=== PATIENT | female | born 1960 | race Caucasian/White ===

== ENCOUNTER 2019-12-15 11:56 | Observation (INO) ==
[2019-12-15] MEDS ORDERED: ACETAMINOPHEN 1,000 MG/100 ML VIAL IV STA (12:39)
[2019-12-15] MEDS ORDERED: SODIUM CHLORIDE 0.9% 1000ML 1,000 ML IV ONE (12:39)
[2019-12-15] MEDS ORDERED: KETOROLAC TROMETHAMINE 15 MG/ML VIAL IV STA (12:39)
[2019-12-15 13:22] LABS: INR 1.1 (0.9-1.1); Partial Thromboplastin Ratio 0.9; Partial Thromboplastin Time 25.3 Seconds (21.0-31.0); Prothrombin Time 11.1 Seconds (9.0-12.0)
[2019-12-15 13:30] LABS: Bilirubin Direct < 0.1 mg/dl (0-0.2); Blood Urea Nitrogen 12 mg/dl (7-18); Calcium 8.7 mg/dl (8.5-10.1); Carbon Dioxide 23 mmol/L (21-32); Chloride 107 mmol/L (98-107); Creatinine Clr Calc Pharmacy 99.5 ml/min; Est GFR (African American) 112.4; Glucose 99 mg/dl (70-99); Hematocrit (blood only) 26.9 % (37-47); Lipase 124 U/L (73-393); Magnesium 2.1 mg/dl (1.8-2.4); Mean Corpuscular Hemoglobin 30.6 pg (25-34); Mean Corpuscular Hgb Conc 33.5 g/dL (32-36); Mean Corpuscular Volume 91.5 fL (80-100); Mean Platelet Volume 8.8 fL (7.4-10.4); Platelet Count 92 K/uL (130-400); Potassium 4.1 mmol/L (3.5-5.1); RDW Coefficient of Variation 16.9 % (11.5-14.5); RDW Standard Deviation 55.6 fL (36.4-46.3); Red Blood Count 2.94 M/uL (4.2-5.4); Sodium 137 mmol/L (136-145); White Blood Count 1.03 K/uL (4.8-10.8)
[2019-12-15 13:32] LABS: Anisocytosis Present; Platelet Estimate Decreased (Normal); Tear Drop Cells 1+
[2019-12-15 13:34] LABS: ALC (manual) 0.65 K/uL (1.2-3.4); Basophils # (manual) 0.07 K/uL (0-0.2); Basophils % (manual) 7.1 %; Lymphocytes # (manual) 0.65 K/uL (1.2-3.4); Lymphocytes % (manual) 63.4 %; Neutrophils % (manual) 29.5 %
[2019-12-15 13:39] LABS: Alanine Aminotransferase 43 U/L (12-78); Albumin Globulin Ratio 0.8 (0.9-2); Alkaline Phosphatase 80 U/L (45-117); Aspartate Aminotransferase 23 U/L (15-37); Bilirubin,Total 0.5 mg/dl (0.2-1); Globulin 3.7 gm/dl (2.5-4.0); NT Pro B Type Natriuretic Pept 23 pg/ml (0-900); Phosphorus 3.3 mg/dl (2.5-4.9); Total Protein 6.7 gm/dl (6.4-8.2); Troponin I < 0.015 ng/ml (0-0.045)
--- NOTE | 2019-12-15 13:41 | XRay Report ---
XR chest 1V portable HISTORY: 59 years-old Female Chest Pain . Acute atypical chest pain COMPARISON: Chest CT 10/07/2019 TECHNIQUE: Portable AP view of the chest FINDINGS: Cardiomediastinal and hilar silhouettes are within normal limits. Right IJ catheter distal tip termin ates in the expected location of the mid SVC. No pneumothorax, pleural effusion, airspace consolidati on or overt pulmonary edema. Bones of the chest appear grossly intact. IMPRESSION: No acute process. ACT 112: Negative or not required by law. The above report was generated using voice recognition software. It may contain grammatical, syntax o r spelling errors. Electronically signed by: José Manuel Mae M.D. 12/15/2019 1:40 PM
--- NOTE | 2019-12-15 14:07 | Emergency Department Note ---
Impression & Plan Pulmonary embolism, Thrombocytopenia, Neutropenia, Breast cancer in female ED Provider Note NAME: ROD RAYMOND AGE: 59 SEX: F ARRIVES VIA: Walk-In INFORMANT: Patient, ED PROVIDER(S): Jae Jeffers MD CHIEF COMPLAINT: Chest pain PLAN: Disposition: Admit MEDICAL DECISION MAKING: The patient is a pleasant 67-year-old woman with a past medical history of breast cancer diagnosed in October currently undergoing chemotherapy who presents emergency department with acute onset right-sided chest pain with associated shortness of breath that began yesterday. Patient denies fevers, chills, cough, congestion, nausea, vomiting, diarrhea, urinary symptoms. On arrival the patient is in no acute distress, afebrile with heart in the 120s and vital signs otherwise stable. On exam the patient appears clinically dry. EKG without overt acute ischemia. Chest x-ray negative for acute process. WBC 1.03 with ANC of 0.3 without recent values for comparison in our EMR though the patient reports being neutropenic recently related to her chemotherapy. H/H 9/26.9. Platelets 92K without recent values for comparison. Chemistry without acidosis. Electrolytes and LFTs unremarkable. Troponin negative/undetectable. BNP within normal limits. Lipase within normal limits. CTA of the chest demonstrates several acute appearing small segmental and subsegmental pulmonary emboli within the right middle lobe and bilateral lower lobes. Findings were reviewed with the patient and she is agreeable with plan for admission. Will initiate treatment with heparin given the patient's thrombocytopenia. Case was discussed with Oralia Brown [facility] PAC, with Dr. Galindo, [facility] hospitalist who will evaluate the patient for admission. Triage Nursing notes reviewed and agree them. Prior medical records reviewed Vital Signs: reviewed and remarkable for tachycardia Differential diagnosis: Cardiac ischemia, aortic dissection, pulmonary embolism, pneumothorax, pn eumonia, pericarditis, myocarditis, esophageal rupture, GERD, cholecystitis, pancreatitis, musculoskeletal, as well as other pathologies. ER treatment provided: See below. Diagnostics interpreted by me: ECG: Sinus tachycardia, 114 bpm, normal axis, no ectopy, no overt ST elevation or depression, QTC 427, QRS 80. Cardiac Monitoring: An order for continuous cardiac monitoring was placed and demonstrated sinus tachycardia, 114 bpm, no ectopy. Laboratory studies: See below Imaging studies: XR chest 1V portable HISTORY: 59 years-old Female Chest Pain . Acute atypical chest pain COMPARISON: Chest CT 10/07/2019 TECHNIQUE: Portable AP view of the chest FINDINGS: Cardiomediastinal and hilar silhouettes are within normal limits. Right IJ cat heter distal tip terminates in the expected location of the mid SVC. No pneumothorax, pleural effusion, airspace consolidation or overt pulmonary edema. Bones of the chest appear grossly intact. IMPRESSION: No acute process. -- CT ANGIOGRAPHY OF THE CHEST, PULMONARY EMBOLUS PROTOCOL CLINICAL HISTORY: Chest pain. COMPARISON STUDY: Chest CT October 07, 2019. Chest radiograph December 15, 2019. TECHNIQUE: Following IV administration of 118 mL of Optiray-320, helical axial images of the chest were obtained utilizing the pulmonary embolus protocol. Maximal intensity projections and sagittal and coronal reformats were viewed on an independent 3D workstation. IV contrast was administered without complication. Automated exposure control was utilized for the study. A dose lowering technique was utilized adhering to the principles of ALARA. CT DOSE: 345.80 mGy.cm FINDINGS: A right internal jugular [id number] is in place. There are several acute-appearing small segmental and subsegmental pulmonary emboli within the right middle lobe and bilateral lower lobes. There is no CT evidence for right heart strain. No pulmonary infarct is noted. No enlarged thoracic lymph nodes are present. There is no thoracic aortic dissection. Size the heart is normal. There is no pericardial effusion. No pulmonary nodules are present. Bony thorax is unremarkable. Upper abdomen is unremarkable. There is a small hiatal hernia. IMPRESSION: 1. Several acute-appearing small segmental and subsegmental pulmonary emboli within the right middle lobe and bilateral lower lobes. 2. No pulmonary infarct. No CT evidence for right heart strain. Consultation(s): Case was discussed with Oralia Brown, [facility] PAC, with Dr. Galindo, [facility] hospitalist who will evaluate the patient for admission. HPI: The patient is a pleasant 67-year-old woman with a past medical history of breast cancer diagnosed in October currently undergoing chemotherapy who presents emergency department with acute onset right-sided chest pain with associated shortness of breath that began yesterday. Patient denies fevers, chills, cough, congestion, nausea, vomiting, diarrhea, urinary symptoms. ROS: See above HPI for pertinent positives & negatives. A total of 10 systems reviewed and were otherwise negative. PAST MEDICAL HISTORY:See Below PAST SURGICAL HISTORY:See Below FAMILY HISTORY:See Below SOCIAL HISTORY:See Below HOME MEDICATIONS:See Below ALLERGIES:See Below VITALS:See Below PHYSICAL EXAMINATION: GENERAL: Awake, alert, fatigued-appearing, in no distress HENT: Normocephalic, atraumatic. Oropharynx with dry mucous membranes and otherwise unremarkable. EYES: Normal conjunctiva. Sclera non-icteric. NECK: Supple. No nuchal rigidity. FROM. No JVD. RESPIRATORY: Clear to auscultation. CARDIAC: Tachycardic rate, normal rhythm. Extremities warm and well perfused. Pulses equal. ABDOMEN: Soft, non-distended. No tenderness to palpation. No rebound or guarding. No masses. RECTAL: Deferred. MUSCULOSKELETAL: Chest examination reveals no tenderness. The back is symmetrical on inspection without obvious abnormality. There is no CVA tenderness to palpation. No joint edema. LOWER EXTREMITIES: Calves are equal size bilaterally and non-tender. No edema. No discoloration. NEURO: Normal sensorium. No sensory or motor deficits noted. SKIN: No rash or jaundice noted. ED COURSE: Critical Care: I have personally spent greater than 45 minutes of critical care time in the direct management of this patient. This includes bedside care, interpretation of diagnostic studies, and testing, discussion with consultants, patient, and family members, and other required patient management activities. This 45 minutes is in excess of all separately billable procedures. Jae Jeffers MD Past Med/Surg History Medical History Breast cancer History of migraine Hyperlipidemia Surgical History S/P breast biopsy S/P tonsillectomy Family History Other Heart disease Social History Smoking Status: Never smoker Hx Alcohol Use: No Hx Substance Use: No Preferred Language: Stateless Communication Ability: Effective Domestic Laundry Worker Required: No Beliefs That Will Affect Care: None Current Living Situation: Spouse Other Information That Helps Us Care for You: No Feels Safe at Home: Yes Safety Concerns: Feels Safe At This Time Allergies Allergies Allergy/AdvReac Type Severity Reaction Status Date / Time ciprofloxacin [From Cipro] Allergy vomiting, Unverified 12/15/19 13:26 sweating, tongue swelling codeine Allergy fainting, Unverified 12/15/19 13:26 dizziness amoxicillin AdvReac Rash Unverified 12/15/19 13:26 Home Meds Home Medications Medication Instructions Recorded Confirmed prochlorperazine maleate 10 mg PO UD PRN 12/15/19 12/15/19 sumatriptan succinate 50 mg PO UD PRN 12/15/19 12/15/19 Results & Data (ED) Vital Signs Vital Signs - 24 hr 12/15/19 12:07 12/15/19 12:20 12/15/19 12:31 Temperature 36.9 C Temperature Source Oral Pulse Rate 126 H 107 H 110 H Pulse Rate from SpO2 Sensor Respiratory Rate 16 16 21 Respiratory Depth Normal Blood Pressure 105/72 Blood Pressure Mean 83 Pulse Oximetry 98 Sepsis Recent Fever Within 48 Hours No Sepsis New/Unexplained Change in Mental Status No Sepsis Action Taken by Nursing No Action Required 12/15/19 12:49 12/15/19 12:59 12/15/19 13:00 Temperature Temperature Source Pulse Rate 105 H 103 H Pulse Rate from SpO2 Sensor 105 H 103 H Respiratory Rate 17 21 Respiratory Depth Blood Pressure 123/74 121/73 Blood Pressure Mean 94 80 Pulse Oximetry 97 97 97 Sepsis Recent Fever Within 48 Hours Sepsis New/Unexplained Change in Mental Status Sepsis Action Taken by Nursing 12/15/19 13:30 12/15/19 14:00 12/15/19 14:37 Temperature Temperature Source Pulse Rate 85 92 H 86 Pulse Rate from SpO2 Sensor 92 H 92 H Respiratory Rate 21 16 Respiratory Depth Blood Pressure 127/70 92/72 L Blood Pressure Mean 98 77 Pulse Oximetry 99 97 Sepsis Recent Fever Within 48 Hours Sepsis New/Unexplained Change in Mental Status Sepsis Action Taken by Nursing 12/15/19 15:00 Temperature Temperature Source Pulse Rate 83 Pulse Rate from SpO2 Sensor 83 Respiratory Rate 19 Respiratory Depth Blood Pressure Blood Pressure Mean Pulse Oximetry 98 Sepsis Recent Fever Within 48 Hours Sepsis New/Unexplained Change in Mental Status Sepsis Action Taken by Nursing Laboratory Data Attestation: I reviewed the patient's lab results. Result diagrams: 12/15/19 12:50 12/15/19 12:50 Lab Results 12/15/19 12/15/19 12/15/19 Range/Units 12:50 12:50 12:50 WBC 1.03 L (4.8-10.8) K/uL RBC 2.94 L (4.2-5.4) M/uL Hgb 9.0 L (12.0-16.0) g/dL Hct 26.9 L (37-47) % MCV 91.5 (80-100) fL MCH 30.6 (25-34) pg MCHC 33.5 (32-36) g/dL RDW Std Deviation 55.6 H (36.4-46.3) fL RDW Coeff of Anish 16.9 H (11.5-14.5) % Plt Count 92 L (130-400) K/uL MPV 8.8 (7.4-10.4) fL Neutrophils % (Manual) 29.5 % Lymphocytes % (Manual) 63.4 % Basophils % (Manual) 7.1 % Neutrophils # (Manual) 0.30 L (1.4-6.5) K/uL Total Absolute Neuts 0.30 L* (1.4-6.5) K/uL Lymphocytes # (Manual) 0.65 L (1.2-3.4) K/uL Total Abs Lymphocytes 0.65 L (1.2-3.4) K/uL Basophils # (Manual) 0.07 (0-0.2) K/uL Platelet Estimate Decreased L (Normal) Anisocytosis Present Tear Drop Cells 1+ PT 11.1 (9.0-12.0) Seconds INR 1.1 (0.9-1.1) APTT 25.3 (21.0-31.0) Seconds PTT Ratio 0.9 Sodium 137 (136-145) mmol/L Potassium 4.1 (3.5-5.1) mmol/L Chloride 107 (98-107) mmol/L Carbon Dioxide 23 (21-32) mmol/L Anion Gap 7.0 (3-11) BUN 12 (7-18) mg/dl Creatinine 0.64 (0.6-1.2) mg/dl Est Cr Clr Drug Dosing 99.5 ml/min Est GFR ( Amer) 112.4 Est GFR (Non-Af Amer) 97.0 BUN/Creatinine Ratio 19.0 (10-20) Glucose 99 (70-99) mg/dl Calcium 8.7 (8.5-10.1) mg/dl Phosphorus 3.3 (2.5-4.9) mg/dl Magnesium 2.1 (1.8-2.4) mg/dl Total Bilirubin 0.5 (0.2-1) mg/dl Direct Bilirubin < 0.1 (0-0.2) mg/dl AST 23 (15-37) U/L ALT 43 (12-78) U/L Alkaline Phosphatase 80 (45-117) U/L Troponin I < 0.015 (0-0.045) ng/ml NT-Pro-B Natriuret Pep 23 (0-900) pg/ml Total Protein 6.7 (6.4-8.2) gm/dl Albumin 3.0 L (3.4-5.0) gm/dl Globulin 3.7 (2.5-4.0) gm/dl Albumin/Globulin Ratio 0.8 L (0.9-2) Lipase 124 (73-393) U/L TSH 1.160 (0.300-4.500) uIu/ml Administered Medications Heparin Sodium/Dextrose (Heparin Sodium/Dextrose) 25,000 units in 500 mls @ 24 mls/hr IV .[id number] ANDRES; Protocol Stop: 01/14/20 15:44 Last Titration: 12/15/19 20:08 Dose: 1,200 units/hr, 24 mls/hr Documented by: [id number] Cosigned by: [id number] Titration: 12/15/19 19:02 Dose: 1,200 units/hr, 24 mls/hr Documented by: [id number] Cosigned by: [id number] Titration: 12/15/19 16:39 Dose: 1,200 units/hr, 24 mls/hr Documented by: [id number] Cosigned by: [id number] Admin: 12/15/19 15:53 Dose: 1,200 units/hr, 24 mls/hr Documented by: [id number] Cosigned by: [id number] Discontinued Medications Heparin Sodium/Dextrose (Heparin Iv Standard *No* Bolus) 1 ea IV ONE ONE; Protocol Stop: 12/15/19 15:32 Last Admin: 12/15/19 15:56 Dose: Not Given Documented by: [id number] Sodium Chloride (Nss 1000ml) 1,000 mls @ 999 mls/hr IV .Q1H1M ONE Stop: 12/15/19 13:39 Last Infusion: 12/15/19 15:37 Dose: 0 mls/hr Documented by: [id number] Admin: 12/15/19 12:55 Dose: 999 mls/hr Documented by: [id number] Acetaminophen (Ofirmev) 1,000 mg in 100 mls @ 400 mls/hr IV NOW STA Stop: 12/15/19 12:53 Last Infusion: 12/15/19 13:38 Dose: 0 mls/hr Documented by: [id number] Admin: 12/15/19 12:55 Dose: 400 mls/hr Documented by: [id number] Sodium Chloride (Nss) 500 mls @ 999 mls/hr IV .Q31M ONE Stop: 12/15/19 15:40 Last Infusion: 12/15/19 16:20 Dose: 0 mls/hr Documented by: [id number] Admin: 12/15/19 15:53 Dose: 999 mls/hr Documented by: [id number] Ioversol (Optiray 320 125ml) 118 ml IV ONCE ONE Stop: 12/15/19 14:27 Last Admin: 12/15/19 14:27 Dose: 118 ml Documented by: [id number] Ketorolac Tromethamine (Ketorolac Tromethamine 15 Mg/Ml Vial) 15 mg IV NOW STA Stop: 12/15/19 12:40 Last Admin: 12/15/19 12:55 Dose: 15 mg Documented by: [id number] Blood Pressure Blood Pressure Findings: Low blood pressure Blood Pressure Disposition: further management by hospitalist Discharge Plan Visit Data Chief Complaint: Chest Pain Stated Complaint: CHEST PAIN PAIN DOWN BOTH ARMS, NO CHEMO ED Provider: Jae Jeffers Discharge Problem: Pulmonary embolism, Thrombocytopenia, Neutropenia, Breast cancer in female Patient Disposition: Admitted As Inpatient Discharge Instructions Interventions: ED Discharge Assessment Last Done: 12/15/19 16:19 Discharge Problem: Pulmonary embolism Qualifiers: Pulmonary embolism type: unspecified Chronicity: acute Acute cor pulmonale presence: without acute cor pulmonale Qualified Code(s): I26.99 - Other pulmonary embolism without acute cor pulmonale
[2019-12-15] MEDS ORDERED: OPTIRAY 320 125ml IV ONE (14:26)
--- NOTE | 2019-12-15 14:46 | CT Scan Report ---
CT ANGIOGRAPHY OF THE CHEST, PULMONARY EMBOLUS PROTOCOL CLINICAL HISTORY: Chest pain. COMPARISON STUDY: Chest CT October 07, 2019. Chest radiograph December 15, 2019. TECHNIQUE: Following IV administration of 118 mL of Optiray-320, helical axial images of the chest we re obtained utilizing the pulmonary embolus protocol. Maximal intensity projections and sagittal and coronal reformats were viewed on an independent 3D workstation. IV contrast was administered withou t complication. Automated exposure control was utilized for the study. A dose lowering technique wa s utilized adhering to the principles of ALARA. CT DOSE: 345.80 mGy.cm FINDINGS: A right internal jugular [id number] is in place. There are several acute-appearing smal l segmental and subsegmental pulmonary emboli within the right middle lobe and bilateral lower lobes. There is no CT evidence for right heart strain. No pulmonary infarct is noted. No enlarged thoracic lymph nodes are present. There is no thoracic aortic dissection. Size the heart is normal. There is n o pericardial effusion. No pulmonary nodules are present. Bony thorax is unremarkable. Upper abdomen is unremarkable. There is a small hiatal hernia. IMPRESSION: 1. Several acute-appearing small segmental and subsegmental pulmonary emboli within the right middle lobe and bilateral lower lobes. 2. No pulmonary infarct. No CT evidence for right heart strain. ACT 112: Negative or not required by law. Electronically signed by: Brayan Padilla M.D. 12/15/2019 2:45 PM
[2019-12-15] MEDS ORDERED: SODIUM CHLORIDE 0.9% 500 ML IV ONE (15:10)
[2019-12-15] MEDS ORDERED: Heparin IV Standard *NO* Bolus IV ONE (15:31)
--- NOTE | 2019-12-15 15:45 | History & Physical Report ---
Date of Service December 15, 2019 Assessment & Plan (1) Pulmonary embolism: This is a 59yo F with PMH of invasive cancer of left breast (estrogen/progesterone receptor positive) on chemo, chemo induced neutropenia, migraine headaches and other medical problems as below who presents with dyspnea on exertion and chest tightness x 3 days and was found to have several acute appearing pulmonary emboli. -CTA chest with several acute-appearing small segmental and subsegmental pulmonary emboli within the right middle lobe and bilateral lower lobes. No pulmonary infarct. No CT evidence for right heart strain. -Started on IV heparin in ED for anticoagualation -Need to discuss preferred anticoagulation with heme onc in setting of thrombocyopenia with plts of 94 -Trending troponin, repeat EKG in AM, routine echo due to further evaluate for heart strain (2) Breast cancer in female: Follows with Dr. Petesr in [place]. Recently completed 4th cycle of AC chemotherapy with plans for Taxol 12/23/19 (3) Neutropenia: Absolute neutrophil count of 0.30. Neutropenic precautions -Afebrile, no evidence of infection but plan to add cefepime if concern arises (4) History of migraine: Home sumatriptan PRN DVT Ppx: IV heparin Code status: FULL PCP: [facility] Dispo: Admitted to PCU. Plan to return home once medically stable. Patient seen in collaboration with Dr. Galindo. Please see addendum. History of Present Illness Chief Complaint: CP Primary Care Provider: Joe Stone, This is a 59yo F with PMH of invasive cancer of left breast (estrogen/progesterone receptor positive) on chemo, chemo induced neutropenia, migraine headaches and other medical problems as below who presents with dyspnea on exertion and chest tightness x 3 days. Was recently admitted at [facility] [place]22 to 11/27 for neutropenic fever. Was treated with cefepime for 3 days but blood and urine cultures were negative and was discharged home. Then completed 4th cycle of AC chemotherapy on 12/09/19 and developed SOB, chest tightness and heaviness in arms that has not subsided, so she was directed to ED for further evaluation. Also endorses fever of 100-101 2 days ago that has not recurred. Is scheduled to begin Taxol regimen on 12/23/19. Denies chills, headache, lightheadedness, visual changes, cough, palpitations, abdominal pain, nausea, vomiting, dysuria, constipation or diarrhea. Allergies Allergy/AdvReac Type Severity Reaction Status Date / Time ciprofloxacin [From Cipro] Allergy vomiting, Unverified 12/15/19 13:26 sweating, tongue swelling codeine Allergy fainting, Unverified 12/15/19 13:26 dizziness amoxicillin AdvReac Rash Unverified 12/15/19 13:26 Home Medications Home Medications Medication Instructions Recorded Confirmed Type prochlorperazine maleate 10 mg PO UD PRN 12/15/19 12/15/19 History sumatriptan succinate 50 mg PO UD PRN 12/15/19 12/15/19 History Past Med/Surg History Medical History Breast cancer History of migraine Hyperlipidemia Surgical History S/P breast biopsy S/P tonsillectomy Family History Other Heart disease Social History Smoking Status: Never smoker Hx Alcohol Use: No Hx Substance Use: No Preferred Language: Gibraltarian Communication Ability: Effective Lip Cutter Required: No Beliefs That Will Affect Care: None Current Living Situation: Spouse Other Information That Helps Us Care for You: No Feels Safe at Home: Yes Safety Concerns: Feels Safe At This Time Review of Systems Review of Systems: At least ten systems reviewed and negative except as noted in the HPI. Physical Exam Physical Exam: General Appearance: WD/WN, vitals as above, sitting up in bed, pleasant, conversing easily Head: normocephalic, atraumatic Eyes: normal inspection, PERRL, conjunctivae normal, anicteric sclerae ENT: external ear and nose normal, oropharynx normal Neck: normal visual inspection, trachea midline, no thyromegaly Respiratory: normal respiratory effort, lungs clear to auscultation, no wheeze, rales, rhonchi. No accessory muscle use Cardiovascular: regular rate, rhythm, no murmur, normal peripheral pulses, no BLE edema Chest: normal inspection of chest. Palpation of chest wall non-tender Abdomen/GI: normal bowel sounds, soft, nontender, no hepatosplenomegaly Extremities/Musculoskeletal: no cyanosis or clubbing, extremities motor strength 5/5 Neurologic: PERRL, EOMI, accommodation nl, no face palsy, no dysarthria, CN's II-XI intact bilaterally and moves all extremities Psychiatric: A+Ox3, euthymic affect Skin: no rashes, normal color, warm/dry Results & Data Results & Data ([facility]) Vital Signs (Past 12 Hours) Vital Signs Temp Pulse Resp BP Pulse Ox 12/15/19 15:00 83 19 98 12/15/19 14:37 86 12/15/19 14:00 92 H 16 92/72 L 97 12/15/19 13:30 85 21 127/70 99 12/15/19 13:00 103 H 21 121/73 97 12/15/19 12:59 97 12/15/19 12:49 105 H 17 123/74 97 12/15/19 12:31 110 H 21 12/15/19 12:20 107 H 16 12/15/19 12:07 36.9 C 126 H 16 105/72 98 Laboratory Results Short CBC 12/15/19 Range/Units 12:50 WBC 1.03 L (4.8-10.8) K/uL Hgb 9.0 L (12.0-16.0) g/dL Hct 26.9 L (37-47) % Plt Count 92 L (130-400) K/uL BMP 12/15/19 12:50 Sodium 137 Potassium 4.1 Chloride 107 Carbon Dioxide 23 BUN 12 Creatinine 0.64 Glucose 99 Calcium 8.7 Cardiac Enzymes 12/15/19 12/15/19 Range/Units 12:50 19:28 Troponin I < 0.015 < 0.015 (0-0.045) ng/ml Liver Function 12/15/19 Range/Units 12:50 Total Bilirubin 0.5 (0.2-1) mg/dl Direct Bilirubin < 0.1 (0-0.2) mg/dl AST 23 (15-37) U/L ALT 43 (12-78) U/L Alkaline Phosphatase 80 (45-117) U/L Albumin 3.0 L (3.4-5.0) gm/dl Diagnostic Findings CXR: IMPRESSION: No acute process. Chest CTA: IMPRESSION: 1. Several acute-appearing small segmental and subsegmental pulmonary emboli within the right middle lobe and bilateral lower lobes. 2. No pulmonary infarct. No CT evidence for right heart strain. Code Status & VTE Plan VTE Prophylaxis Plan VTE Prophylaxis will be ordered: Yes Supervising Physician Co-Signing Physician Notes Pt was seen an examined. Agreed with Oralia TESFAYE exam, assessment and plan. 59yo F with PMH of invasive cancer of left breast (estrogen/progesterone receptor positive) on chemo, chemo induced neutropenia, migraine headaches presents to the ER with dyspnea on exertion and chest tightness. She was recently admitted at [facility] [place] 11/27 for neutropenic fever and treated with cefepime for 3 days during the hospital course with negative cultures. CTA chest showed Several acute-appearing small segmental and subsegmental pulmonary emboli within the right middle lobe and bilateral lower lobes. Starting on heparin drip. Hospitalist team will discuss with oncology about anticoagulant preference between eliquis and Lovenox. Will trend troponin and get a resting ECHO in am. Will monitor closely for bleeding while on heparin drip since de to the low platelets. Will monitor closely in telemetry. MD Mateo (1) Pulmonary embolism Acute cor pulmonale presence: without acute cor pulmonale Chronicity: acute Pulmonary embolism type: unspecified Qualified Code(s): I26.99 - Other pulmonary embolism without acute cor pulmonale
[2019-12-15] MEDS: HEPARIN SODIUM/DEXTROSE 25,000 UNITS/500 ML BAG IV SCH (15:53)
[2019-12-15] MEDS ORDERED: ONDANSETRON INJ 2 MG/ML 2 ML VIAL IV PRN (17:04)
[2019-12-15] MEDS ORDERED: ACETAMINOPHEN 325 MG TAB PO PRN (17:04)
[2019-12-15] MEDS ORDERED: POLYETHYLENE (MIRALAX) 17 GM PACK PO PRN (17:04)
--- NOTE | 2019-12-15 19:21 | Electrocardiogram Report ---
Test Reason : Blood Pressure : / mmHG Vent. Rate : 114 BPM Atrial Rate : 114 BPM P-R Int : 136 ms QRS Dur : 080 ms QT Int : 310 ms P-R-T Axes : 067 057 044 degrees QTc Int : 427 ms Sinus tachycardia Nonspecific ST abnormality Otherwise normal ECG No previous ECGs available Confirmed by Babar Christianson ([id number]) on 12/15/2019 7:21:31 PM Referred By: REFERRED SELF Confirmed By:Fabricio Christianson
[2019-12-15 20:03] LABS: Partial Thromboplastin Ratio 1.7
[2019-12-15 20:06] LABS: Partial Thromboplastin Time 46.8 Seconds (21.0-31.0)
[2019-12-15] MEDS ORDERED: KETOROLAC TROMETHAMINE 15 MG/ML VIAL IV PRN (20:46)
[2019-12-15] MEDS ORDERED: ACETAMINOPHEN 500 MG TAB PO PRN (20:46)
[2019-12-15] MEDS ORDERED: HEPARIN 100 UNIT/ML 5ML FLUSH FLUSH PRN (23:28)
[2019-12-16 06:16] LABS: Hematocrit (blood only) 24.3 % (37-47); Hemoglobin 8.1 g/dL (12.0-16.0); Mean Corpuscular Hemoglobin 30.9 pg (25-34); Mean Corpuscular Hgb Conc 33.3 g/dL (32-36); Mean Corpuscular Volume 92.7 fL (80-100); Mean Platelet Volume 9.4 fL (7.4-10.4); Platelet Count 78 K/uL (130-400); Red Blood Count 2.62 M/uL (4.2-5.4); White Blood Count 0.77 K/uL (4.8-10.8)
[2019-12-16 06:32] LABS: Partial Thromboplastin Ratio 2.6
[2019-12-16 06:35] LABS: Partial Thromboplastin Time 71.2 Seconds (21.0-31.0)
[2019-12-16 06:46] LABS: BUN Creatinine Ratio 14.3 (10-20); Calcium 8.2 mg/dl (8.5-10.1); Creatinine Clr Calc Pharmacy 110.6 ml/min; Est GFR (African American) 116.1; Est GFR (Non-African American) 100.2
[2019-12-16] MEDS ORDERED: PERFLUTREN LIPID MICROSPHERE (DEFINITY) IV ONE (06:58)
[2019-12-16 13:34] LABS: Partial Thromboplastin Ratio 2.2
[2019-12-16 13:35] LABS: Partial Thromboplastin Time 62.2 Seconds (21.0-31.0)
[2019-12-16] MEDS: HEPARIN SODIUM/DEXTROSE 25,000 UNITS/500 ML BAG IV SCH (15:13)
--- NOTE | 2019-12-16 17:18 | Hospitalist Progress Note ---
Date of Service December 16, 2019 Assessment & Plan (1) Pulmonary embolism: Patient is a 59-year-old female with H/O Invasive cancer of left breast (estrogen/progesterone receptor positive) on chemo, chemo induced neutropenia, migraine headaches and other medical problems as below who presents with dyspnea on exertion and chest tightness x 3 days and was found to have several acute appearing pulmonary emboli. Acute Pulmonary Embolism Risk Factor:Breast Cancer --CTA:Several acute-appearing small segmental and subsegmental pulmonary emboli within the right middle lobe and bilateral lower lobes. No pulmonary infarct. No CT evidence for right heart strain. --ECHO: There is normal left ventricular wall thickness. Left ventricular systolic function is normal. Ejection fraction 60 to 65%. The left ventricular wall motion is normal. The right ventricle is normal in size and function. Doppler findings do not suggest pulmonary hypertension. --Continue IV heparin --Discussed with Oncology on 12/16/19 --Plan to transition to [facility] as able (2) Breast cancer in female: Ongoing Chemotherapy Follows with Dr. Peters in [place]. Recently completed 4th cycle of AC chemotherapy Next cycle planned for Taxol 12/23/19 (3) Neutropenia: Pancytopenia Neutropenia Secondary to chemotherapy Afebrile currently No plan to start on antibiotics for now (4) History of migraine: Sumatriptan PRN DVT Px: IV heparin Code status: FULL CODE Disposition: Plan to discharge home when stable Admission and Anticipated Discharge Date Admission Date: December 15, 2019 Subjective Patient is seen and examined at bedside Complains of mild pleuritic chest discomfort with breathing Also reports dyspnea on exertion Denies any bleeding issues Also denies nausea, vomiting, fever, abdominal pain, dizziness Offers no other complaints Discussed with oncology today Review of Systems Review of Systems: All systems reviewed & are unremarkable except as noted in HPI & below Physical Exam Physical Exam: Physical Exam: Vitals signs as noted above General Appearance:Moderately built and nourished, no apparent distress Head: normocephalic, Atraumatic Eyes: normal inspection, EOMI Neck: supple, Trachea midline Respiratory/Chest: Normal breath sounds, CTA, No accessory muscle use Cardiovascular: S1, S2, No murmur, +Tachycardia Abdomen/GI:Soft, Non tender, Bowel sounds present Extremities/Musculoskelatal:normal inspection, Trace edema Neurologic/Psych:AAOX3, grossly no focal neurological deficits Skin: normal color, warm Results & Data Results & Data ([facility]) Vital Signs (Past 12 Hours) Vital Signs Temp Pulse Pulse Resp BP Pulse Ox 12/16/19 16:19 100 H 12/16/19 15:39 37.0 C 107 H 18 105/69 96 12/16/19 11:30 36.7 C 110 H 20 110/73 99 12/16/19 07:29 37.0 C 94 H 18 111/64 95 Laboratory Results Short CBC 12/16/19 Range/Units 05:40 WBC 0.77 L* (4.8-10.8) K/uL Hgb 8.1 L (12.0-16.0) g/dL Hct 24.3 L (37-47) % Plt Count 78 L (130-400) K/uL BMP 12/16/19 05:40 Sodium 140 Potassium 4.0 Chloride 109 H Carbon Dioxide 24 BUN 8 Creatinine 0.58 L Glucose 91 Calcium 8.2 L Cardiac Enzymes 12/15/19 12/16/19 Range/Units 19:28 00:21 Troponin I < 0.015 < 0.015 (0-0.045) ng/ml (1) Pulmonary embolism Acute cor pulmonale presence: without acute cor pulmonale Chronicity: acute Pulmonary embolism type: unspecified Qualified Code(s): I26.99 - Other pulmonary embolism without acute cor pulmonale
--- NOTE | 2019-12-16 18:59 | Electrocardiogram Report ---
Test Reason : Blood Pressure : / mmHG Vent. Rate : 096 BPM Atrial Rate : 096 BPM P-R Int : 138 ms QRS Dur : 082 ms QT Int : 350 ms P-R-T Axes : 080 068 061 degrees QTc Int : 442 ms Normal sinus rhythm Normal ECG When compared with ECG of 15-DEC-2019 12:12, No significant change was found Confirmed by Babar Christianson ([id number]) on 12/16/2019 6:59:12 PM Referred By: REFERRED SELF Confirmed By:Fabricio Christianson
[2019-12-17 06:42] LABS: Hematocrit (blood only) 22.9 % (37-47); Hemoglobin 7.9 g/dL (12.0-16.0); Mean Corpuscular Hgb Conc 34.5 g/dL (32-36); Mean Corpuscular Volume 92.7 fL (80-100); Platelet Count 69 K/uL (130-400); RDW Coefficient of Variation 16.6 % (11.5-14.5); RDW Standard Deviation 56.4 fL (36.4-46.3); Red Blood Count 2.47 M/uL (4.2-5.4); White Blood Count 0.82 K/uL (4.8-10.8)
[2019-12-17 06:56] LABS: Partial Thromboplastin Ratio 2.5
[2019-12-17 06:58] LABS: BUN Creatinine Ratio 11.7 (10-20); Calcium 8.7 mg/dl (8.5-10.1); Creatinine Clr Calc Pharmacy 95.7 ml/min; Est GFR (African American) 110.7; Est GFR (Non-African American) 95.5
[2019-12-17 06:59] LABS: Partial Thromboplastin Time 70.6 Seconds (21.0-31.0)
[2019-12-17 07:10] LABS: Basophils # (auto) 0.02 K/uL (0-0.2); Basophils % (auto) 2.4 %; Eosinophils # (auto) 0.05 K/uL (0-0.5); Eosinophils % (auto) 6.1 %; Lymphocytes # (auto) 0.51 K/uL (1.2-3.4); Lymphocytes % (auto) 62.2 %; Monocytes # (auto) 0.09 K/uL (0.11-0.59); Neutrophils # (auto) 0.15 K/uL (1.4-6.5); Neutrophils % (auto) 18.3 %
--- NOTE | 2019-12-17 12:43 | Electrocardiogram Report ---
Test Reason : Blood Pressure : / mmHG Vent. Rate : 092 BPM Atrial Rate : 092 BPM P-R Int : 158 ms QRS Dur : 086 ms QT Int : 392 ms P-R-T Axes : 067 068 066 degrees QTc Int : 484 ms Normal sinus rhythm When compared with ECG of 16-DEC-2019 07:07, No significant change was found Confirmed by Babar Christianson ([id number]) on 12/17/2019 12:42:59 PM Referred By: REFERRED SELF Confirmed By:Fabricio Christianson
[2019-12-17] MEDS: HEPARIN SODIUM/DEXTROSE 25,000 UNITS/500 ML BAG IV SCH ×2 (13:06→19:04)
[2019-12-17 13:38] LABS: Partial Thromboplastin Ratio 1.8
--- NOTE | 2019-12-17 18:06 | Hospitalist Progress Note ---
Date of Service December 17, 2019 Assessment & Plan (1) Pulmonary embolism: Patient is a 59-year-old female with H/O Invasive cancer of left breast (estrogen/progesterone receptor positive) on chemo, chemo induced neutropenia, migraine headaches and other medical problems as below who presents with dyspnea on exertion and chest tightness x 3 days and was found to have several acute appearing pulmonary emboli. Acute Pulmonary Embolism Risk Factor:Breast Cancer --CTA:Several acute-appearing small segmental and subsegmental pulmonary emboli within the right middle lobe and bilateral lower lobes. No pulmonary infarct. No CT evidence for right heart strain. --ECHO: There is normal left ventricular wall thickness. Left ventricular systolic function is normal. Ejection fraction 60 to 65%. The left ventricular wall motion is normal. The right ventricle is normal in size and function. Doppler findings do not suggest pulmonary hypertension. --Continue IV heparin for now --Discussed with Oncology on 12/16/19 --Plan to transition to [facility] as able --Continue current medications (2) Breast cancer in female: Ongoing Chemotherapy Follows with Dr. Peters in [place]. Recently completed 4th cycle of AC chemotherapy Next cycle planned for Taxol 12/23/19 (3) Neutropenia: Pancytopenia Neutropenia Secondary to chemotherapy Remains Afebrile No antibiotics for now WBC count slightly improved today (4) History of migraine: Sumatriptan PRN DVT Px: On IV heparin Code status: FULL CODE Disposition: Plan to discharge home when stable Admission and Anticipated Discharge Date Admission Date: December 15, 2019 Subjective Patient is seen and examined at bedside Chest pain resolved Dyspnea on exertion improved No new complaints Denies nausea, vomiting, fever, abdominal pain, dizziness Afebrile Review of Systems Review of Systems: All systems reviewed & are unremarkable except as noted in HPI & below Physical Exam Physical Exam: Physical Exam: Vitals signs as noted above General Appearance:Moderately built and nourished, no apparent distress Head: normocephalic, Atraumatic Eyes: normal inspection, EOMI Neck: supple, Trachea midline Respiratory/Chest: Normal breath sounds, CTA, No accessory muscle use Cardiovascular: S1, S2, No murmur, +Tachycardia Abdomen/GI:Soft, Non tender, Bowel sounds present Extremities/Musculoskelatal:normal inspection, Trace edema Neurologic/Psych:AAOX3, grossly no focal neurological deficits Skin: normal color, warm Results & Data Results & Data ([facility]) Vital Signs (Past 12 Hours) Vital Signs Temp Pulse Resp BP Pulse Ox 12/17/19 15:39 36.9 C 107 H 18 116/69 97 12/17/19 11:41 37.1 C 92 H 19 112/70 97 12/17/19 07:43 37.2 C 96 H 18 110/66 95 Laboratory Results Short CBC 12/17/19 Range/Units 06:19 WBC 0.82 L* (4.8-10.8) K/uL Hgb 7.9 L (12.0-16.0) g/dL Hct 22.9 L (37-47) % Plt Count 69 L (130-400) K/uL BMP 12/17/19 06:19 Sodium 143 Potassium 4.0 Chloride 110 H Carbon Dioxide 26 BUN 8 Creatinine 0.67 Glucose 89 Calcium 8.7 (1) Pulmonary embolism Acute cor pulmonale presence: without acute cor pulmonale Chronicity: acute Pulmonary embolism type: unspecified Qualified Code(s): I26.99 - Other pulmonary embolism without acute cor pulmonale
[2019-12-18 04:48] LABS: Hematocrit (blood only) 21.7 % (37-47); Hemoglobin 7.3 g/dL (12.0-16.0); Mean Corpuscular Hemoglobin 31.3 pg (25-34); Mean Corpuscular Hgb Conc 33.6 g/dL (32-36); Mean Corpuscular Volume 93.1 fL (80-100); Nucleated RBC # (auto) 0.04 K/uL (0-0); Nucleated RBC % (auto) 3.2 %; RDW Coefficient of Variation 16.7 % (11.5-14.5); RDW Standard Deviation 55.9 fL (36.4-46.3); Red Blood Count 2.33 M/uL (4.2-5.4); White Blood Count 1.26 K/uL (4.8-10.8)
[2019-12-18 04:53] LABS: Mean Platelet Volume 9.8 fL (7.4-10.4); Platelet Count 79 K/uL (130-400)
[2019-12-18 05:15] LABS: Partial Thromboplastin Ratio 2.2
[2019-12-18 05:19] LABS: Partial Thromboplastin Time 62.1 Seconds (21.0-31.0)
[2019-12-18 05:20] LABS: Basophils # (auto) 0.03 K/uL (0-0.2); Basophils % (auto) 2.4 %; Dohle Bodies 1+; Eosinophils # (auto) 0.04 K/uL (0-0.5); Eosinophils % (auto) 3.2 %; Immature Granulocytes # (auto) 0.03 K/uL (0.00-0.02); Immature Granulocytes % (auto) 2.4 %; Lymphocytes # (auto) 0.54 K/uL (1.2-3.4); Lymphocytes % (auto) 42.9 %; Monocytes # (auto) 0.22 K/uL (0.11-0.59); Monocytes % (auto) 17.5 %; Neutrophils % (auto) 31.6 %; Ovalocytes 1+
[2019-12-18] MEDS ORDERED: HYDROCORTISONE HC 2.5% CRM 30GM TUBE EXT PRN (08:20)
[2019-12-18] MEDS ORDERED: PSYLLIUM 58.6% POWDER PACKET PO SCH (09:00)
[2019-12-18] MEDS ORDERED: APIXABAN 5 MG TABLET PO SCH (09:00)
[2019-12-18 12:48] LABS: Hemoglobin 7.8 g/dL (12.0-16.0)
--- NOTE | 2019-12-18 13:01 | Hospitalist Progress Note ---
Date of Service December 18, 2019 Assessment & Plan (1) Pulmonary embolism: Patient is a 59-year-old female with H/O Invasive cancer of left breast (estrogen/progesterone receptor positive) on chemo, chemo induced neutropenia, migraine headaches and other medical problems as below who presents with dyspnea on exertion and chest tightness x 3 days and was found to have several acute appearing pulmonary emboli. Acute Pulmonary Embolism Risk Factor:Breast Cancer --CTA:Several acute-appearing small segmental and subsegmental pulmonary emboli within the right middle lobe and bilateral lower lobes. No pulmonary infarct. No CT evidence for right heart strain. --ECHO: There is normal left ventricular wall thickness. Left ventricular systolic function is normal. Ejection fraction 60 to 65%. The left ventricular wall motion is normal. The right ventricle is normal in size and function. Doppler findings do not suggest pulmonary hypertension. --IV heparin transition to Eliquis --Discussed with Oncology on 12/16/19 --Chest pain resolved (2) Breast cancer in female: Ongoing Chemotherapy Follows with Dr. Peters in [place]. Recently completed 4th cycle of AC chemotherapy Next cycle planned for Taxol 12/23/19 (3) Neutropenia: Pancytopenia Neutropenia Secondary to chemotherapy Remains Afebrile No antibiotics for now WBC count/Neutropenia improving Advised to get repeat blood work in 1 week Hemorrhoids Cautioned about bleeding while on apixaban Anusol HC PRN (4) History of migraine: Sumatriptan PRN DVT Px: Eliquis Code status: FULL CODE Disposition: Plan to discharge home today Admission and Anticipated Discharge Date Admission Date: December 15, 2019 Subjective Patient is seen and examined at bedside States feeling better Dyspnea on exertion improved Denies chest pain, nausea, vomiting, fever, abdominal pain, dizziness Afebrile WBC count improving Review of Systems Review of Systems: All systems reviewed & are unremarkable except as noted in HPI & below Physical Exam Physical Exam: Physical Exam: Vitals signs as noted above General Appearance:Moderately built and nourished, no apparent distress Head: normocephalic, Atraumatic Eyes: normal inspection, EOMI Neck: supple, Trachea midline Respiratory/Chest: Normal breath sounds, CTA, No accessory muscle use Cardiovascular: S1, S2, No murmur Abdomen/GI:Soft, Non tender, Bowel sounds present Extremities/Musculoskelatal:normal inspection, Trace edema Neurologic/Psych:AAOX3, grossly no focal neurological deficits Skin: normal color, warm Results & Data Results & Data ([facility]) Vital Signs (Past 12 Hours) Vital Signs Temp Pulse Resp BP Pulse Ox 12/18/19 11:36 96 H 17 112/65 99 12/18/19 07:34 37.1 C 88 19 113/61 98 12/18/19 03:25 37.0 C 90 17 106/52 L 94 Laboratory Results Short CBC 12/18/19 12/18/19 Range/Units 04:20 11:45 WBC 1.26 L (4.8-10.8) K/uL Hgb 7.3 L 7.8 L (12.0-16.0) g/dL Hct 21.7 L 23.0 L (37-47) % Plt Count 79 L (130-400) K/uL (1) Pulmonary embolism Acute cor pulmonale presence: without acute cor pulmonale Chronicity: acute Pulmonary embolism type: unspecified Qualified Code(s): I26.99 - Other pulmonary embolism without acute cor pulmonale
--- NOTE | 2019-12-18 13:16 | Discharge Summary ---
Date of Service December 18, 2019 Admission HPI Per Admitting Provider This is a 59yo F with PMH of invasive cancer of left breast (estrogen/progesterone receptor positive) on chemo, chemo induced neutropenia, migraine headaches and other medical problems as below who presents with dyspnea on exertion and chest tightness x 3 days. [place] [facility] for neutropenic fever. Was treated with cefepime for 3 days but blood and urine cultures were negative and was discharged home. Then completed 4th cycle of AC chemotherapy on 12/09/19 and developed SOB, chest tightness and heaviness in arms that has not subsided, so she was directed to ED for further evaluation. Also endorses fever of 100-101 2 days ago that has not recurred. Is scheduled to begin Taxol regimen on 12/23/19. Denies chills, headache, lightheadedness, visual changes, cough, palpitations, abdominal pain, nausea, vomiting, dysuria, constipation or diarrhea. Admission Exam Per Admitting Provider Physical Exam Physical Exam: General Appearance: WD/WN, vitals as above, sitting up in bed, pleasant, conversing easily Head: normocephalic, atraumatic Eyes: normal inspection, PERRL, conjunctivae normal, anicteric sclerae ENT: external ear and nose normal, oropharynx normal Neck: normal visual inspection, trachea midline, no thyromegaly Respiratory: normal respiratory effort, lungs clear to auscultation, no wheeze, rales, rhonchi. No accessory muscle use Cardiovascular: regular rate, rhythm, no murmur, normal peripheral pulses, no BLE edema Chest: normal inspection of chest. Palpation of chest wall non-tender Abdomen/GI: normal bowel sounds, soft, nontender, no hepatosplenomegaly Extremities/Musculoskeletal: no cyanosis or clubbing, extremities motor strength 5/5 Neurologic: PERRL, EOMI, accommodation nl, no face palsy, no dysarthria, CN's II-XI intact bilaterally and moves all extremities Psychiatric: A+Ox3, euthymic affect Skin: no rashes, normal color, warm/dry Principal Diagnosis Acute Pulmonary Embolism Pancytopenia Discharge Data Allergies Allergy/AdvReac Type Severity Reaction Status Date / Time ciprofloxacin [From Cipro] Allergy vomiting, Unverified 12/15/19 13:26 sweating, tongue swelling codeine Allergy fainting, Unverified 12/15/19 13:26 dizziness amoxicillin AdvReac Rash Unverified 12/15/19 13:26 Consultations 12/15/19 15:08 ED Decision to Admit Stat Procedures Performed --CTA:Several acute-appearing small segmental and subsegmental pulmonary emboli within the right middle lobe and bilateral lower lobes. No pulmonary infarct. No CT evidence for right heart strain. --ECHO: There is normal left ventricular wall thickness. Left ventricular systolic function is normal. Ejection fraction 60 to 65%. The left ventricular wall motion is normal. The right ventricle is normal in size and function. Doppler findings do not suggest pulmonary hypertension. Ordered Studies 12/15/19 12:39 CT angio chest PE protocol Stat Hospital Course (1) Pulmonary embolism: Patient is a 59-year-old female with H/O Invasive cancer of left breast (estrogen/progesterone receptor positive) on chemo, chemo induced neutropenia, migraine headaches and other medical problems as below who presents with dyspnea on exertion and chest tightness x 3 days and was found to have several acute appearing pulmonary emboli. Acute Pulmonary Embolism Risk Factor:Breast Cancer --CTA:Several acute-appearing small segmental and subsegmental pulmonary emboli within the right middle lobe and bilateral lower lobes. No pulmonary infarct. No CT evidence for right heart strain. --ECHO: There is normal left ventricular wall thickness. Left ventricular systolic function is normal. Ejection fraction 60 to 65%. The left ventricular wall motion is normal. The right ventricle is normal in size and function. Doppler findings do not suggest pulmonary hypertension. --IV heparin transition to Eliquis --Discussed with Oncology on 12/16/19 --Chest pain resolved (2) Breast cancer in female: Ongoing Chemotherapy Follows with Dr. Peters in [place]. Recently completed 4th cycle of AC chemotherapy Next cycle planned for Taxol 12/23/19 (3) Neutropenia: Pancytopenia Neutropenia Secondary to chemotherapy Remains Afebrile No antibiotics for now WBC count/Neutropenia improving Advised to get repeat blood work in 1 week Hemorrhoids Cautioned about bleeding while on apixaban Anusol HC PRN (4) History of migraine: Sumatriptan PRN DVT Px: Eliquis Code status: FULL CODE Disposition: Plan to discharge home today Total Time Total Time Spent Total Time Spent (In Minutes): 40 minutes Total Time Includes: Examination of the Patient, Discharge Planning, Medication Reconciliation, Communication With Other Providers and Other Discharge Plan Discharge Items Patient Disposition: Home - Self-Care Reason For Visit: SEVERAL SEGMENTAL PES,PANCYTOPENIA Discharge Diagnosis: Acute Pulmonary Embolism Pancytopenia Activity: Resume your previous activity Exercise/Sports: Wait until after follow-up appointment Non-emergency contact: Primary Care Provider and Oncologist Call non-emergency contact if: you have any medication questions, your symptoms worsen, your pain is not controlled, your pain is worsening, your pain is unusual for you, your pain is concerning for you and you have a fever Follow-up/Referrals: Yoel Peters M.D. [Staff Physician] - 12/23/19 9:00 am (Please follow up with Dr. Peters at [facility] on 12/23/2019 on 9:00 am. Please arrive to the office 15 minutes early for your appointment. If you are unable to keep this appointment, please call the office to reschedule at [phone]. ) Joe Stone DO [Primary Care Provider] - 12/20/19 11:00 am (Please follow up with Dr. Stone at [facility] on Friday12/20/2019 at 11:00 am. Please arrive to the office 15 minutes early for your appointment. If you are unable to keep this appointment, please call the office to reschedule at [phone].) Diet: Regular Ambulatory Orders: Complete Blood Count with Diff (Timed) Timeframe: 3 Days Location: Determined by Patient Ordered By: David Badillo Attending Provider Instructions: Follow-up with your primary care physician Dr. Joe Stone on December 20, 2019 at 10:45 AM Follow-up with your oncologist Dr. Peters on December 23, 2019 at 9 AM Get Blood Test(complete blood count with differential) in 3 days and follow-up with your physician as advised Apixaban (Eliquis) Dosing: Start taking apixaban 10 mg twice a day for 7 days and then 5 mg twice a day. Further recommendations on anticoagulation as per your oncologist. Discuss with your physician regarding possible need for Hypercoagulable work up as outpatient when appropriate. Monitor for any bleeding issues as advised. Seek immediate medical advice if you have any bleeding issues while on apixaban. Pending Studies at Discharge: No Stand-Alone Forms: My [facility] [employer], Smoking Cessation Medications and DC Order Prescriptions: New apixaban 5 mg (74 tabs) tablets,dose pack 5 mg PO UD Qty: 74 RF: 0 Continued sumatriptan succinate 50 mg tablet 50 mg PO UD PRN (Reason: Migraine Headache) RF: 0 prochlorperazine maleate 10 mg tablet 10 mg PO UD PRN (Reason: Nausea) RF: 0 Discharge Orders: Discharge Order (Routine); Ordered 12/18/19 Ordered By: David Larkin/Other Patient Handouts: Breast Anatomy, Nausea Vomit Control, Cancer Breast Adjuvant Therapy Admission Data Admit Date/Time: 12/15/19 15:45 Attending Provider: David Vasquez Admit Provider: Romelia Galindo Primary Care Provider: Joe Stone Other Providers: Romelia Galindo Other Interventions: Discharge Summary Assessment (RN) Last Done: 12/18/19 13:57
== END 2019-12-18 15:16 | disposition home or self-care (01) ==
LOC: ED 11:56 → 2E 15:45 → SUATTDRO 15:45 → INTOOBSV 15:45 → 2E 16:19